=== PATIENT | male | born 1960 | race Hispanic/Latino ===

== ENCOUNTER 2017-09-23 12:33 | Emergency (ER) | payer MEDICARE ==
[2017-09-23 13:29] LABS: Basophils % (Auto) 0.7 % (0.0-1.8); Eosinophils # (Auto) 0.1 K/mm3 (0.0-0.4); Eosinophils % (Auto) 1.2 % (0.0-4.3); Hematocrit 46.8 % (35.5-45.6); Hemoglobin 16.4 gm/dl (11.8-15.2); Lymphocytes # (Auto) 1.3 K/mm3 (1.2-5.4); Lymphocytes % (Auto) 22.9 % (13.4-35.0); Mean Corpuscular HGB Conc 35 % (32-34); Mean Corpuscular Hemoglobin 31 pg (28-32); Mean Corpuscular Volume 88 fl (84-94); Monocytes # (Auto) 0.5 K/mm3 (0.0-0.8); Monocytes % (Auto) 8.9 % (0.0-7.3); Platelet Count 130 K/mm3 (140-440); Red Blood Count 5.29 M/mm3 (3.65-5.03); Red Cell Distribution Width 12.9 % (13.2-15.2)
[2017-09-23 13:42] LABS: BUN/Creatinine Ratio 15; Blood Urea Nitrogen 12 mg/dL (9-20); Calcium 9.5 mg/dL (8.4-10.2); Hemolysis Index 15; INR 1.27 (0.87-1.13)
[2017-09-23 13:43] LABS: Partial Thromboplastin Time 32.9 Sec. (24.2-36.6)
--- NOTE | 2017-09-23 13:47 | Emergency Department Report ---
ED Psych HPI - General Chief Complaint: Medical Clearance Stated Complaint: NICOLE BOLAND Time Seen by Provider: 09/23/17 13:06 Source: patient, police Mode of arrival: Ambulatory Limitations: No Limitations - History of Present Illness Initial Comments: 56-year-old male with a past medical history schizophrenia, bipolar disease, thyroid disease, elevated cholesterol, dementia, DVT, and PE presents to the hospital with complaints of suicidal ideation. Patient apparently expressed to his girlfriend doing a argument that he wanted to . Patient states he was just upset at the time and states he no longer wants to be involved with this woman. He states he has been suicidal in the past but denies feeling suicidal at this time. As per mechanical engineering officer [id number] patient complained of pain to his chest. Patient states he's had a little bit of right lateral chest pain 2 days ago that has since resolved. Patient has had similar pain in the past. A few months ago he was at [facility] and diagnosed with a PE. Patient has been on anticoagulation and has had a filter for several years secondary diagnoses of DVTs. Patient had the PE while or Pradaxa and with a filter but was told it was very small. Patient was admitted to the hospital for one day and transitioned to Lovenox and then changed Xarelto. He states that the Xarelto interfered with his bipolar medication that starts with a T and therefore it was changed to another bipolar medication (cant recall name). Patient states this medication is not helping with his psychiatric symptoms and so he is not taking it as prescribed. Patient states he missed one dose of his Xarelto 2 days ago but is otherwise compliant and took a dose last night at 8 PM. He currently denies chest pain, shortness of breath, or leg swelling. Patient denies hallucinations. - Related Data Home Medications Medication Instructions Recorded Confirmed Last Taken Citalopram [Celexa] 20 mg PO QDAY 07/26/13 02/21/15 02/21/15 05:00 Gabapentin [Neurontin] 300 mg PO Q8H 07/26/13 02/21/15 02/21/15 05:00 Levothyroxine [Synthroid] 150 mcg PO QAM 07/26/13 02/21/15 02/21/15 05:00 Loratadine [Claritin RAPDIS] 10 mg PO QDAY 0402/12/15 07/26/13 09:00 QUEtiapine [SEROquel] 50 mg PO QHS 07/26/13 02/21/15 02/20/15 21:00 Simvastatin [Zocor TAB] 40 mg PO ONCE 07/26/13 02/21/15 02/21/15 05:00 carBAMazepine [TEGretol] 200 mg PO TID 07/26/13 02/12/15 07/26/13 09:00 clonazePAM 0.5 mg PO TID 07/26/13 02/21/15 02/20/15 21:00 Dabigatran [Pradaxa] 150 mg PO BID 02/12/15 02/21/15 02/18/15 09:00 Omeprazole [PriLOSEC] 40 mg PO QDAY 02/12/15 02/21/15 02/21/15 05:00 Previous Rx's Medication Instructions Recorded Last Taken Type Enoxaparin [Lovenox] 110 mg SUB-Q Q12HR #10 syringe 07/30/13 12/13/14 Rx Acetaminophen/Codeine [Tylenol #3] 1 tab PO Q6H PRN #20 tab 12/22/14 02/20/15 19 :00 Rx Ibuprofen [Motrin 800 MG tab] 800 mg PO Q8HR PRN #30 tablet 12/22/14 Unknown Rx Allergies Allergy/AdvReac Type Severity Reaction Status Date / Time bupropion HCl Allergy Unknown Verified 09/23/17 12:55 [From Wellbutrin] levofloxacin [From Levaquin] Allergy Rash Verified 09/23/17 12:55 warfarin sodium Allergy Rash Verified 09/23/17 12:55 [From Coumadin] onion Allergy Hives Uncoded 07/27/13 16:12 ED Review of Systems ROS: Stated complaint: MH EVAL Other details as noted in HPI Comment: All other systems reviewed and negative ED Past Medical Hx - Past Medical History Hx Hypertension: No (+ hyperlipidemia) Hx Congestive Heart Failure: No Hx Diabetes: No Hx Deep Vein Thrombosis: Yes (right lower extremity 2012) Hx GERD: Yes Hx Renal Disease: No (Recurrent kidney stones) Hx Arthritis: Yes Hx Headaches / Migraines: Yes Hx Seizures: No Hx Kidney Stones: Yes Hx Asthma: No Hx Dementia: Yes (2011) Additional medical history: hiatal hernia. bipolar/schizophrenia. thyroid. high cholesterol - Surgical History Additional Surgical History: right rotater cuff repair. tonsillectomy. left wrist surgery. [place] filter - Social History Smoking Status: Never Smoker - Medications Home Medications: Home Medications Medication Instructions Recorded Confirmed Last Taken Type Citalopram [Celexa] 20 mg PO QDAY 07/26/13 02/21/15 02/21/15 05:00 History Gabapentin [Neurontin] 300 mg PO Q8H 07/26/13 02/21/15 02/21/15 05:00 History Levothyroxine [Synthroid] 150 mcg PO QAM 07/26/13 02/21/15 02/21/15 05:00 History Loratadine [Claritin RAPDIS] 10 mg PO QDAY 07/26/13 02/12/15 07/26/13 09:00 History QUEtiapine [SEROquel] 50 mg PO QHS 07/26/13 02/21/15 02/20/15 21:00 History Simvastatin [Zocor TAB] 40 mg PO ONCE 07/26/13 02/21/15 02/21/15 05:00 History carBAMazepine [TEGretol] 200 mg PO TID 07/26/13 02/12/15 07/26/13 09:00 History clonazePAM 0.5 mg PO TID 07/26/13 02/21/15 02/20/15 21:00 History Enoxaparin [Lovenox] 110 mg SUB-Q Q12HR #10 syringe 07/30/13 02/12/15 12/13/14 Rx Acetaminophen/Codeine [Tylenol #3] 1 tab PO Q6H PRN #20 tab 12/22/14 02/21/15 19:00 Rx Ibuprofen [Motrin 800 MG tab] 800 mg PO Q8HR PRN #30 tablet 12/22/14 02/12/15 Unknown Rx Dabigatran [Pradaxa] 150 mg PO BID 02/12/15 02/21/15 02/18/15 09:00 History Omeprazole [PriLOSEC] 40 mg PO QDAY 02/12/15 02/21/15 02/21/15 05:00 History ED Physical Exam - General Limitations: No Limitations - Other Other exam information: General: No limitations, patient is alert in no acute distress Head exam: Atraumatic, normocephalic Eyes exam: Normal appearance ENT: Moist mucous membrane, normal oropharynx Neck exam: Normal inspection, full range of motion, no meningismus nontender Respiratory exam: Clear to auscultation bilateral, no wheezes, rales, crackles Cardiovascular: Normal rate and rhythm, normal heart sounds Abdomen: Soft, nondistended, and nontender, with normal bowel sounds, no rebound, or guarding Extremity: Full range of motion normal inspection no deformity, no calf tenderness or edema Back: Normal Inspection, full range of motion, no tenderness Neurologic: Alert, oriented x3, cranial nerves intact, no motor or sensory deficit Psychiatric: normal affect, normal mood Skin: Warm, dry, intact ED Course Vital Signs 09/23/17 09/23/17 12:55 14:49 Temperature 98 F 98.4 F Pulse Rate 102 H 90 Respiratory 18 18 Rate Blood Pressure 128/82 Blood Pressure 138/83 [Right] O2 Sat by Pulse 97 98 Oximetry - Consultations Consultation #1: 09/23/17 16:38 Dr Ragland from [facility] was able to verify the pt has had close follow up and is in close and frequent contact with his psychiatrist. I verified the pt's number as [phone] which is the same they have on record. They will call him to schedule psych f/u. ED Medical Decision Making - Lab Data Result diagrams: 09/23/17 13:13 09/23/17 13:13 Lab Results 09/23/17 09/23/17 09/23/17 Range/Units 13:00 13:13 13:13 WBC 5.9 (4.5-11.0) K/mm3 RBC 5.29 H (3.65-5.03) M/mm3 Hgb 16.4 H (11.8-15.2) gm/dl Hct 46.8 H (35.5-45.6) % MCV 88 (84-94) fl MCH 31 (28-32) pg MCHC 35 H (32-34) % RDW 12.9 L (13.2-15.2) % Plt Count 130 L (140-440) K/mm3 Lymph % (Auto) 22.9 (13.4-35.0) % Alfalfa % (Auto) 8.9 H (0.0-7.3) % Eos % (Auto) 1.2 (0.0-4.3) % Baso % (Auto) 0.7 (0.0-1.8) % Lymph # 1.3 (1.2-5.4) K/mm3 Alfalfa # 0.5 (0.0-0.8) K/mm3 Eos # 0.1 (0.0-0.4) K/mm3 Baso # 0.0 (0.0-0.1) K/mm3 Seg Neutrophils % 66.3 (40.0-70.0) % Seg Neutrophils # 3.9 (1.8-7.7) K/mm3 PT 16.6 H (12.2-14.9) Sec. INR 1.27 H (0.87-1.13) APTT 32.9 (24.2-36.6) Sec. Sodium (137-145) mmol/L Potassium (3.6-5.0) mmol/L Chloride (98-107) mmol/L Carbon Dioxide (22-30) mmol/L Anion Gap mmol/L BUN (9-20) mg/dL Creatinine (0.8-1.5) mg/dL Estimated GFR ml/min BUN/Creatinine Ratio % Glucose (75-100) mg/dL Calcium (8.4-10.2) mg/dL Total Creatine Kinase (55-170) units/L CK-MB (CK-2) (0.0-4.0) ng/mL CK-MB (CK-2) Rel Index (0-4) Troponin T (0.00-0.029) ng/mL Salicylates (2.8-20.0) mg/dL Urine Opiates Screen Presumptive negative Urine Methadone Screen Presumptive negative Acetaminophen (10.0-30.0) ug/mL Ur Barbiturates Screen Presumptive negative Ur Phencyclidine Scrn Presumptive negative Ur Amphetamines Screen Presumptive negative U Benzodiazepines Scrn Presumptive positive Urine Cocaine Screen Presumptive negative U Marijuana (THC) Screen Presumptive positive Drugs of Abuse Note Disclamer Plasma/Serum Alcohol (0-0.07) % 09/23/17 09/23/17 09/23/17 Range/Units 13:13 13:13 13:13 WBC (4.5-11.0) K/mm3 RBC (3.65-5.03) M/mm3 Hgb (11.8-15.2) gm/dl Hct (35.5-45.6) % MCV (84-94) fl MCH (28-32) pg MCHC (32-34) % RDW (13.2-15.2) % Plt Count (140-440) K/mm3 Lymph % (Auto) (13.4-35.0) % Alfalfa % (Auto) (0.0-7.3) % Eos % (Auto) (0.0-4.3) % Baso % (Auto) (0.0-1.8) % Lymph # (1.2-5.4) K/mm3 Alfalfa # (0.0-0.8) K/mm3 Eos # (0.0-0.4) K/mm3 Baso # (0.0-0.1) K/mm3 Seg Neutrophils % (40.0-70.0) % Seg Neutrophils # (1.8-7.7) K/mm3 PT (12.2-14.9) Sec. INR (0.87-1.13) APTT (24.2-36.6) Sec. Sodium 140 (137-145) mmol/L Potassium 3.8 (3.6-5.0) mmol/L Chloride 101.8 (98-107) mmol/L Carbon Dioxide 21 L (22-30) mmol/L Anion Gap 21 mmol/L BUN 12 (9-20) mg/dL Creatinine 0.8 (0.8-1.5) mg/dL Estimated GFR > 60 ml/min BUN/Creatinine Ratio 15 % Glucose 101 H (75-100) mg/dL Calcium 9.5 (8.4-10.2) mg/dL Total Creatine Kinase (55-170) units/L CK-MB (CK-2) (0.0-4.0) ng/mL CK-MB (CK-2) Rel Index (0-4) Troponin T (0.00-0.029) ng/mL Salicylates < 0.3 L (2.8-20.0) mg/dL Urine Opiates Screen Urine Methadone Screen Acetaminophen < 5.0 L (10.0-30.0) ug/mL Ur Barbiturates Screen Ur Phencyclidine Scrn Ur Amphetamines Screen U Benzodiazepines Scrn Urine Cocaine Screen U Marijuana (THC) Screen Drugs of Abuse Note Plasma/Serum Alcohol (0-0.07) % 09/23/17 09/23/17 Range/Units 13:13 13:13 WBC (4.5-11.0) K/mm3 RBC (3.65-5.03) M/mm3 Hgb (11.8-15.2) gm/dl Hct (35.5-45.6) % MCV (84-94) fl MCH (28-32) pg MCHC (32-34) % RDW (13.2-15.2) % Plt Count (140-440) K/mm3 Lymph % (Auto) (13.4-35.0) % Alfalfa % (Auto) (0.0-7.3) % Eos % (Auto) (0.0-4.3) % Baso % (Auto) (0.0-1.8) % Lymph # (1.2-5.4) K/mm3 Alfalfa # (0.0-0.8) K/mm3 Eos # (0.0-0.4) K/mm3 Baso # (0.0-0.1) K/mm3 Seg Neutrophils % (40.0-70.0) % Seg Neutrophils # (1.8-7.7) K/mm3 PT (12.2-14.9) Sec. INR (0.87-1.13) APTT (24.2-36.6) Sec. Sodium (137-145) mmol/L Potassium (3.6-5.0) mmol/L Chloride (98-107) mmol/L Carbon Dioxide (22-30) mmol/L Anion Gap mmol/L BUN (9-20) mg/dL Creatinine (0.8-1.5) mg/dL Estimated GFR ml/min BUN/Creatinine Ratio % Glucose (75-100) mg/dL Calcium (8.4-10.2) mg/dL Total Creatine Kinase 241 H (55-170) units/L CK-MB (CK-2) 1.5 (0.0-4.0) ng/mL CK-MB (CK-2) Rel Index 0.6 (0-4) Troponin T < 0.010 (0.00-0.029) ng/mL Salicylates (2.8-20.0) mg/dL Urine Opiates Screen Urine Methadone Screen Acetaminophen (10.0-30.0) ug/mL Ur Barbiturates Screen Ur Phencyclidine Scrn Ur Amphetamines Screen U Benzodiazepines Scrn Urine Cocaine Screen U Marijuana (THC) Screen Drugs of Abuse Note Plasma/Serum Alcohol < 0.01 (0-0.07) % - EKG Data -: EKG Interpreted by Me (probable old anerolateral infarct) EKG shows normal: sinus rhythm, axis (qrs 226), QRS complexes (qrsd 200), ST-T waves (no stemi/ tinv) Rate: normal (71) - EKG Data When compared to previous EKG there are: previous EKG unavailable - Medical Decision Making Patient does not appear to have any acute physiologic complaints or abnormality. His visits to the ER seems to be purely due to psychiatric reasons. Patient's story has been consistently the same that he is not suicidal. The mental health bsa/aml compliance officer attempted to contact his girlfriend but there was no answer. After discussion with Dr. Obie serrano it appears that the patient's story is consistent that he is in close contact with the psychiatrist with plan to follow-up. They will call him to schedule an appointment in the near future. Patient is stable for discharge - Differential Diagnosis depression, bipolar, schizophrenia Critical Care Time: No Critical care attestation.: If time is entered above; I have spent that time in minutes in the direct care of this critically ill patient, excluding procedure time. ED Disposition Clinical Impression: Bipolar disorder, Hx of deep venous thrombosis, Hx of pulmonary embolus, Anticoagulant long-term use Disposition: DC-01 TO HOME OR SELFCARE Is pt being admited?: No Condition: Stable Instructions: Bipolar Disorder (ED), Suicide Prevention for Adults (ED) Additional Instructions: You should receive a call from [facility] to schedule a psychiatric appointment. If you do not hear a call back by tomorrow please call your physicians to schedule follow-up. Please return if symptoms worsen as indicated by the discharge instructions. Referrals: PRIMARY CARE,MD [Primary Care Provider] - 3-5 Days your, psychiatrist [Other] - [facility] Time of Disposition: 16:53
[2017-09-23 13:49] LABS: Creatine Kinase MB 1.5 ng/mL (0.0-4.0)
[2017-09-23 14:20] LABS: Amphetamine Screen,Urine PRESUMPTIVE NEGATIVE; Cocaine Screen,Urine PRESUMPTIVE NEGATIVE; Methadone Screen,Urine PRESUMPTIVE NEGATIVE; Opiate Screen,Urine PRESUMPTIVE NEGATIVE
[2017-09-23 14:35] LABS: Benzodiazepines Screen,Urine PRESUMPTIVE POSITIVE; Cannabinoid Screen,Urine PRESUMPTIVE POSITIVE
[2017-09-23 17:43] VITALS: BP 111/72
[2017-09-23] MEDS ORDERED: XARELTO PO SCH (20:00)
== END 2017-09-23 17:41 | disposition home or self-care (01) ==
LOC: ED 12:33 → EEVIPCON 12:33 → ED 17:41
DX: F31.9 Bipolar disorder, unspecified (principal); G43.909 Migraine, unspecified, not intractable, without status migrainosus; F20.9 Schizophrenia, unspecified; E78.00 Pure hypercholesterolemia, unspecified; K21.9 Gastro-esophageal reflux disease without esophagitis; M19.90 Unspecified osteoarthritis, unspecified site; Z88.1 Allergy status to other antibiotic agents; Z86.718 Personal history of other venous thrombosis and embolism; Z86.711 Personal history of pulmonary embolism; Z79.01 Long term (current) use of anticoagulants; Z88.8 Allergy status to other drugs, medicaments and biological substances; Z91.018 Allergy to other foods
CPT/HCPCS: 36415; 80048; 80307; 82550; 82553; 84484; 85025; 85610; 85730; 93005; 93010; 99284; G0480; 80320

== ENCOUNTER 2018-10-07 08:51 | Emergency (ER) | payer MEDICARE ==
[2018-10-07] MEDS ORDERED: ATIVAN ONE ×3 (08:59→19:41)
[2018-10-07] MEDS ORDERED: KETALAR ONE (09:00)
[2018-10-07] MEDS ORDERED: NACL 0.9% 500 ML 500 ML IV SCH (09:00)
[2018-10-07] MEDS ORDERED: NACL 0.9% 500 ML 500 ML IV ONE (09:00)
[2018-10-07] MEDS ORDERED: SUBLIMAZE ONE (09:08)
[2018-10-07] MEDS ORDERED: NORMODYNE IV ONE ×2 (09:13→12:50)
--- NOTE | 2018-10-07 09:17 | Consultation ---
History of Present Illness History of present illness: [facility] Impression: Patient presenting with agitation/combativeness/encephalopathy. CT shows left occipitoparietal hemorrhage with surrounding vasogenic edema. Not a tpa candidate due to: out of window, taking Xarelto, bleed on CT Not an GÓMEZ candidate due to: presentation not suggestive of LVO, bleed on CT Differential Diagnosis: 1. IPH - underlying mass, trauma, AVM, amyloid, HTN, infarct Comments: Door time: 08 [facility] contacted: 0900 [facility] at bedside: 903 NIHSS assessment time: 907 Recommendations: MRI brain wow once safe EEG once safe Hold Xarelto Reverse coagulopathy Monitor coags HOB 30 degrees SBP < 140 Euvolemia, normothermia, avoid hypoglycemia inpatient neurology consultation neurosurgery consultation Discussed with ED MD --------- CC: stroke alert History of Present Illness Patient is a 57 year old man with a history of schizophrenia, bipolar disorder, factor V Leiden, DVT/PE on Xarelto who presented with agitation/encephalopathy. Last known well last night at 2300 prior to bed. He reportedly woke agitated/combative and yelling. No focal deficits noted. ED MD called stroke alert to expedite CT. Diagnostic: CT head wo - left occipitoparietal IPH with surrounding vasogenic edema, mass effect on left occipital horn Exam: NIHSS score: 13 He is hyperactive/agitated and yelling. Physical restraints in place. He does not participate in exam. Gaze centered with full horizontal movement on observation. Face symmetric. He has very strong resistance against the restraints in all limbs. He is just yelling without any meaningful speech production. No sensory loss to nox stim in extremities. Medical Decision Making: - Extensive number of diagnosis or management options are considered above. - Extensive amount of complex data reviewed. - High risk of complication and/or morbidity or mortality are associated with differential diagnostic considerations above. - There may be Uncertain outcome and increased probability of prolonged functional impairment or high probability of severe prolonged functional impairment associated with some of these differential diagnosis. Medical Data Reviewed: 1.Data reviewed include clinical labs, radiology, Medical Tests; 2.Tests results discussed w/performing or interpreting physician; 3.Obtaining/reviewing old medical records; 4.Obtaining case history from another source; 5.Independent review of image, tracing or specimen. Patient was informed the Neurology Consult would happen via TeleHealth consult by way of interactive audio and video telecommunications and consented to receiving care in this manner. Medications and Allergies Allergies Allergy/AdvReac Type Severity Reaction Status Date / Time bupropion HCl Allergy Unknown Verified 09/23/17 12:55 [From Wellbutrin] levofloxacin [From Levaquin] Allergy Rash Verified 09/23/17 12:55 warfarin sodium Allergy Rash Verified 09/23/17 12:55 [From Coumadin] onion Allergy Hives Uncoded 07/27/13 16:12 Home Medications Medication Instructions Recorded Confirmed Last Taken Type Citalopram [Celexa] 20 mg PO QDAY 07/26/13 02/21/15 02/21/15 05:00 History Gabapentin [Neurontin] 300 mg PO Q8H 07/26/13 02/21/15 02/21/15 05:00 History Levothyroxine [Synthroid] 150 mcg PO QAM 07/26/13 02/21/15 02/21/15 05:00 History Loratadine [Claritin RAPDIS] 10 mg PO QDAY 07/26/13 02/12/15 07/26/13 09:00 History QUEtiapine [SEROquel] 50 mg PO QHS 07/26/13 02/21/15 02/20/15 21:00 History Simvastatin (Nf) [Zocor TAB] 40 mg PO ONCE 07/26/13 02/21/15 02/21/15 05:00 History carBAMazepine [TEGretol] 200 mg PO TID 07/26/13 02/12/15 07/26/13 09:00 History clonazePAM 0.5 mg PO TID 07/26/13 02/21/15 02/20/15 21:00 History Enoxaparin [Lovenox] 110 mg SUB-Q Q12HR #10 syringe 07/30/13 02/12/15 12/13/14 Rx Acetaminophen/Codeine [Tylenol #3] 1 tab PO Q6H PRN #20 tab 12/22/14 02/21/15 02/20/15 19:00 Rx Ibuprofen [Motrin 800 MG tab] 800 mg PO Q8HR PRN #30 tablet 12/22/14 02/12/15 Unknown Rx Dabigatran [Pradaxa] 150 mg PO BID 02/12/15 02/21/15 02/18/15 09:00 History Omeprazole [PriLOSEC] 40 mg PO QDAY 02/12/15 02/21/15 02/21/15 05:00 History - Level of Consciousness 1a. Level of Consciousness: alert/keenly responsive - LOC Questions 1b. LOC Questions: answers no questions correctly - LOC Command 1c. LOC Commands: performs no tasks correctly - Best Gaze 2. Best Gaze: normal - Visual 3. Visual: no visual loss - Facial Palsy 4. Facial Palsy: normal symmetrical movement - Motor Arm 5a. Motor Arm Left: drift 5b. Motor Arm Right: drift - Motor Leg 6a. Motor Leg Left: drift 6b. Motor Leg Right: drift - Limb Ataxia 7. Limb Ataxia: absent - Sensory 8. Sensory: normal - Best Language 9. Best Language: mute/global aphasia - Dysarthria 10. Dysarthria: mute/anarrthric - Extinction and Inattention 11. Extinction/Inattention: no abnormality - Scoring Total Score: 13 Stroke Severity: Moderate Stroke Results - Laboratory Findings CBC and BMP: 10/07/18 09:27 10/07/18 09:27
[2018-10-07] MEDS ORDERED: KETALAR IV ONE (09:34)
[2018-10-07] MEDS ORDERED: ATIVAN IM ONE (09:34)
[2018-10-07] MEDS ORDERED: ATIVAN IV ONE (09:34)
[2018-10-07] MEDS ORDERED: SUBLIMAZE INTRANASAL ONE (09:35)
[2018-10-07] MEDS ORDERED: DIPRIVAN 10 MG/ML IV ONE ×2 (09:40)
[2018-10-07 10:00] LABS: INR 1.65 (0.87-1.13); Partial Thromboplastin Time 28.6 Sec. (24.2-36.6)
[2018-10-07] MEDS ORDERED: DIPRIVAN 10 MG/ML 1,000 MG/100 ML BOTTLE IV SCH (10:00)
[2018-10-07 10:01] LABS: Basophils # (Auto) 0.1 K/mm3 (0.0-0.1); Basophils % (Auto) 1.1 % (0.0-1.8); Eosinophils # (Auto) 0.1 K/mm3 (0.0-0.4); Eosinophils % (Auto) 0.5 % (0.0-4.3); Hemoglobin 15.7 gm/dl (11.8-15.2); Lymphocytes # (Auto) 3.8 K/mm3 (1.2-5.4); Lymphocytes % (Auto) 32.3 % (13.4-35.0); Mean Corpuscular HGB Conc 34 % (32-34); Mean Corpuscular Volume 92 fl (84-94); Monocytes # (Auto) 0.6 K/mm3 (0.0-0.8); Platelet Count 213 K/mm3 (140-440); Red Blood Count 4.99 M/mm3 (3.65-5.03); Red Cell Distribution Width 13.4 % (13.2-15.2)
[2018-10-07 10:05] LABS: BUN/Creatinine Ratio 4; Blood Urea Nitrogen 5 mg/dL (9-20); Calcium 8.9 mg/dL (8.4-10.2); Hemolysis Index 16
[2018-10-07] MEDS ORDERED: DIPRIVAN 10 MG/ML 1,000 MG/100 ML BOTTLE IV ONE (10:14)
--- NOTE | 2018-10-07 10:17 | Cat Scan Report ---
CT HEAD WITHOUT CONTRAST: HISTORY: Neuro deficits less than 6 hours, stroke. TECHNIQUE: Sequential 2.5mm CT images. COMPARISON: none. FINDINGS: Cerebral Parenchyma: There is a large area of edema in the posterior left temporal lobe. Hemorrhage is seen within this area measuring up to 4.4 x 2.7 cm in axial plane. There is no evidence for significant mass effect or midline shift. The remaining brain parenchyma is within normal limits. Cerebellum: Within normal limits. Brainstem: Within normal limits. Ventricles: Normal. Sella: Normal. Extra-axial spaces: Normal. Basal Cisterns: Normal. Midline Shift: None. Calvarium: Normal. Sinuses: Normal. Mastoid Air Cells: Normal. Visualized Orbits: Normal. IMPRESSION: Left posterior temporal hemorrhage with surrounding edema as discussed above. Please note an underlying hemorrhagic lesion cannot be entirely excluded. Consider followup MRI with contrast if needed. These findings were discussed with Dr. Smiley in the emergency department at 1008 hours
[2018-10-07] MEDS ORDERED: NACL 0.9% 500 ML 500 ML ONE (10:26)
[2018-10-07 10:29] LABS: Albumin 4.6 g/dL (3.9-5); Bilirubin,Direct 0.2 mg/dL (0-0.2); Creatine Kinase MB 1.2 ng/mL (0.0-4.0)
[2018-10-07] MEDS ORDERED: KCL 10MEQ/100ML 10 MEQ/100 ML BAG IV ONE ×2 (10:36→10:40)
--- NOTE | 2018-10-07 10:42 | Emergency Department Report ---
ED General Adult HPI - General Chief complaint: Altered Mental Status Stated complaint: AMS/SEIZURE Time Seen by Provider: 10/07/18 09:29 Source: family, EMS Mode of arrival: Stretcher Limitations: Altered Mental Status - History of Present Illness Initial comments: This is a 57-year-old male with a maren excited delirium on arrival at this facility. Remarkably was transported by EMS. His who states she works at [employer]. She states that the patient complained of some sort of dyslexia last night at about 11:00; he stated that he was able to read all one word in a sentence. He went to sleep and this morning he was totally confused disoriented and incoherent. 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 He has factor V Leiden deficiency she states. Immediate chemical sedation and restraint was required to facilitate the patient's stat workup. He was called a code stroke has a potential TPA candidate but in order to expedite his neurological workup with a high index of suspicion for ICH. -: Last night - Related Data Home Medications Medication Instructions Recorded Confirmed Last Taken Citalopram [Celexa] 20 mg PO QDAY 07/26/13 02/21/15 02/21/15 05:00 Gabapentin [Neurontin] 300 mg PO Q8H 07/26/13 02/21/15 02/21/15 05:00 Levothyroxine [Synthroid] 150 mcg PO QAM 07/26/13 02/21/15 02/21/15 05:00 Loratadine [Claritin RAPDIS] 10 mg PO QDAY 07/26/13 02/12/15 07/26/13 09:00 QUEtiapine [SEROquel] 50 mg PO QHS 07/26/13 02/21/15 02/20/15 21:00 Simvastatin (Nf) [Zocor TAB] 40 mg PO ONCE 07/26/13 02/21/15 02/21/15 05:00 carBAMazepine [TEGretol] 200 mg PO TID 07/26/13 02/12/15 07/26/13 09:00 clonazePAM 0.5 mg PO TID 07/26/13 02/21/15 02/20/15 21:00 Dabigatran [Pradaxa] 150 mg PO BID 02/12/15 02/21/1515 09:00 Omeprazole [PriLOSEC] 40 mg PO QDAY 02/12/15 02/21/15 02/21/15 05:00 Previous Rx's Medication Instructions Recorded Last Taken Type Enoxaparin [Lovenox] 110 mg SUB-Q Q12HR #10 syringe 07/30/13 12/13/14 Rx Acetaminophen/Codeine [Tylenol #3] 1 tab PO Q6H PRN #20 tab 12/22/14 02/20/15 19:00 Rx Ibuprofen [Motrin 800 MG tab] 800 mg PO Q8HR PRN #30 tablet 12/22/14 Unknown Rx Allergies Allergy/AdvReac Type Severity Reaction Status Date / Time bupropion HCl Allergy Unknown Verified 09/23/17 12:55 [From Wellbutrin] levofloxacin [From Levaquin] Allergy Rash Verified 09/23/17 12:55 warfarin sodium Allergy Rash Verified 09/23/17 12:55 [From Coumadin] onion Allergy Hives Uncoded 07/27/13 16:12 ED Review of Systems ROS: Stated complaint: AMS/SEIZURE Other details as noted in HPI Comment: Unobtainable due to pts medical conditions ED Past Medical Hx - Past Medical History Hx Hypertension: No (+ hyperlipidemia) Hx Congestive Heart Failure: No Hx Diabetes: No Hx Deep Vein Thrombosis: Yes (right lower extremity 2012) Hx GERD: Yes Hx Renal Disease: No (Recurrent kidney stones) Hx Arthritis: Yes Hx Headaches / Migraines: Yes Hx Seizures: No Hx Kidney Stones: Yes Hx Asthma: No Hx Dementia: Yes (2011) Additional medical history: hiatal hernia. bipolar/schizophrenia. thyroid. high cholesterol - Surgical History Additional Surgical History: right rotater cuff repair. tonsillectomy. left wrist surgery. [place] filter - Social History Smoking Status: Never Smoker - Medications Home Medications: Home Medications Medication Instructions Recorded Confirmed Last Taken Type Citalopram [Celexa] 20 mg PO QDAY 07/26/13 02/21/15 02/21/15 05:00 History Gabapentin [Neurontin] 300 mg PO Q8H 07/26/13 02/21/15 02/21/15 05:00 History Levothyroxine [Synthroid] 150 mcg PO QAM 07/26/13 02/21/15 02/21/15 05:00 History Loratadine [Claritin RAPDIS] 10 mg PO QDAY 07/26/13 02/12/15 07/26/13 09:00 History QUEtiapine [SEROquel] 50 mg PO QHS 07/26/13 02/21/15 02/20/15 21:00 History Simvastatin (Nf) [Zocor TAB] 40 mg PO ONCE 07/26/13 02/21/15 02/21/15 05:00 History carBAMazepine [TEGretol] 200 mg PO TID 07/26/13 02/12/15 07/26/13 09:00 History clonazePAM 0.5 mg PO TID 07/26/13 02/21/15 02/20/15 21:00 History Enoxaparin [Lovenox] 110 mg SUB-Q Q12HR #10 syringe 07/30/13 02/12/15 12/13/14 Rx Acetaminophen/Codeine [Tylenol #3] 1 tab PO Q6H PRN #20 tab 12/22/14 02/21/15 02/20/15 19:00 Rx Ibuprofen [Motrin 800 MG tab] 800 mg PO Q8HR PRN #30 tablet 12/22/14 02/12/15 Unknown Rx Dabigatran [Pradaxa] 150 mg PO BID 02/12/15 02/21/15 02/18/15 09:00 History Omeprazole [PriLOSEC] 40 mg PO QDAY 02/12/15 02/21/15 02/21/15 05:00 History ED Physical Exam - General Limitations: Altered Mental Status General appearance: other (extremely agitated) - Head Head exam: Present: atraumatic - Eye Eye exam: Present: PERRL, EOMI. Absent: scleral icterus - ENT ENT exam: Present: other (extremely poor dentition) - Neck Neck exam: Present: normal inspection. Absent: meningismus - Respiratory Respiratory exam: Present: normal lung sounds bilaterally. Absent: respiratory distress - Cardiovascular Cardiovascular Exam: Present: regular rate, normal rhythm. Absent: systolic murmur, diastolic murmur, rubs, gallop - GI/Abdominal GI/Abdominal exam: Present: soft, normal bowel sounds. Absent: distended, tenderness, guarding, rebound, rigid - Extremities Exam Extremities exam: Present: normal inspection - Neurological Exam Neurological exam: Present: altered, CN II-XII intact (on very limited testing), motor sensory deficit (moving all extremities with extreme strength), other (GCS is 9) - Psychiatric Psychiatric exam: Present: agitated - Skin Skin exam: Present: warm, dry, intact, normal color. Absent: rash ED Course - Reevaluation(s) Reevaluation #1: Mechanical and chemical restraint required. Patient's initial blood pressure was rather high as well as his heart rate being in the 140s. He required blood pressure management. He was given Ativan both IM and IV. When his blood pressure was at a reasonable level we preceded with ketamine. I accompanied the patient to CT where he received propofol. He never desaturated. A CT of his head showed a substantially large subacute left occipital parietal hemorrhage with substantial edema. Neurosurgery at [place] was notified. They recommended that we go ahead with mannitol. I had already ordered Kcentra and directed the pharmacist to prepare this on a stat basis. 10/07/18 10:43 10/07/18 10:49 Obviously the patient was never a candidate for thrombolytic therapy. He has been accepted by Dr. Fernandez, Neuro- Intervention list had [facility]. [place] doctor Brandt has been informed and concur with the transfer. - Intubation Time Out Performed: No Sedative: other (propofol) Paralytic: Succinylcholine Laryngoscope: Gene Size: 4 ET Tube Size: 7.5 Tube Secured Depth (cm): 22 Tube Secured Location: teeth Tube Placement Confirmation: visualized tube passing t Patient Tolerated Procedure: well Intubation Complications: none ED Medical Decision Making - Lab Data Result diagrams: 10/07/18 09:27 10/07/18 09:27 Laboratory Results - last 24 hr 10/07/18 10/07/18 10/07/18 09:27 09:27 09:27 WBC 11.8 H RBC 4.99 Hgb 15.7 H Hct 46.0 H MCV 92 MCH 32 MCHC 34 RDW 13.4 Plt Count 213 Lymph % (Auto) 32.3 [place] % (Auto) 5.0 Eos % (Auto) 0.5 Baso % (Auto) 1.1 Lymph # 3.8 [place] # 0.6 Eos # 0.1 Baso # 0.1 Seg Neutrophils % 61.1 Seg Neutrophils # 7.2 PT 20.6 H INR 1.65 H APTT 28.6 Thrombin Time Sodium 142 Potassium 2.9 L* Chloride 96.0 L Carbon Dioxide 13 L Anion Gap 36 BUN 5 L Creatinine 1.2 Estimated GFR > 60 BUN/Creatinine Ratio 4 Glucose 199 H Calcium 8.9 Total Bilirubin Direct Bilirubin Indirect Bilirubin AST ALT Alkaline Phosphatase Ammonia Total Creatine Kinase CK-MB (CK-2) CK-MB (CK-2) Rel Index Troponin T < 0.010 NT-Pro-B Natriuret Pep Total Protein Albumin Albumin/Globulin Ratio Salicylates Acetaminophen Plasma/Serum Alcohol 10/07/18 10/07/18 10/07/18 09:27 09:27 09:42 WBC RBC Hgb Hct MCV MCH MCHC RDW Plt Count Lymph % (Auto) [place] % (Auto) Eos % (Auto) Baso % (Auto) Lymph # [place] # Eos # Baso # Seg Neutrophils % Seg Neutrophils # PT INR APTT Thrombin Time 16.2 Sodium Potassium Chloride Carbon Dioxide Anion Gap BUN Creatinine Estimated GFR BUN/Creatinine Ratio Glucose Calcium Total Bilirubin 0.80 Direct Bilirubin 0.2 Indirect Bilirubin 0.6 AST 28 ALT 23 Alkaline Phosphatase 114 Ammonia 109.0 H Total Creatine Kinase 154 CK-MB (CK-2) 1.2 CK-MB (CK-2) Rel Index 0.7 Troponin T NT-Pro-B Natriuret Pep 43.35 Total Protein 7.5 Albumin 4.6 Albumin/Globulin Ratio 1.6 Salicylates Acetaminophen Plasma/Serum Alcohol 10/07/18 10/07/18 10/07/18 09:42 09:42 09:42 WBC RBC Hgb Hct MCV MCH MCHC RDW Plt Count Lymph % (Auto) [place] % (Auto) Eos % (Auto) Baso % (Auto) Lymph # [place] # Eos # Baso # Seg Neutrophils % Seg Neutrophils # PT INR APTT Thrombin Time Sodium Potassium Chloride Carbon Dioxide Anion Gap BUN Creatinine Estimated GFR BUN/Creatinine Ratio Glucose Calcium Total Bilirubin Direct Bilirubin Indirect Bilirubin AST ALT Alkaline Phosphatase Ammonia Total Creatine Kinase CK-MB (CK-2) CK-MB (CK-2) Rel Index Troponin T NT-Pro-B Natriuret Pep Total Protein Albumin Albumin/Globulin Ratio Salicylates < 0.3 L Acetaminophen < 5.0 L Plasma/Serum Alcohol < 0.01 - EKG Data EKG shows normal: sinus rhythm Rate: normal - EKG Data Interpretation: no acute changes - Radiology Data Radiology results: image reviewed (occipital parietal hemorrhage with edema) Critical Care Time: Yes Critical care time in (mins) excluding proc time.: 90 Critical care attestation.: If time is entered above; I have spent that time in minutes in the direct care of this critically ill patient, excluding procedure time. ED Disposition Clinical Impression: Intracranial hemorrhage, Acute encephalopathy, On anticoagulant therapy, Hypokalemia, Factor V Leiden Disposition: DC/TX-70 ANOTHER TYPE HLTHCARE Is pt being admited?: No Does the pt Need Aspirin: No Condition: Stable Time of Disposition: 10:52
[2018-10-07 10:59] LABS: Bacteria,Urine 1+ /HPF (Negative); Bilirubin,Urine NEG (Negative); Blood,Urine SM (Negative); Color,Urine Yellow (Yellow); Mucus,Urine FEW /HPF; Urobilinogen,Urine < 2.0 mg/dL (<2.0)
[2018-10-07] MEDS ORDERED: KCENTRA IV ONE (11:00)
[2018-10-07] MEDS ORDERED: VIAFLEX EMPTY CONTAINER IV ONE (11:00)
[2018-10-07] MEDS ORDERED: OSMITROL 20% IV ONE (11:00)
[2018-10-07] MEDS ORDERED: NACL 0.9% 1000 ML 1,000 ML ONE (11:06)
--- NOTE | 2018-10-07 11:11 | XRay Report ---
AP CHEST: HISTORY: Hypertension No recent comparison. An endotracheal tube has been inserted which terminates 3.2 cm superior to the tad. There is adequate pulmonary inflation. No evidence for infiltrate, pleural effusion or pneumothorax. Heart size is within normal limits. IMPRESSION: Adequate placement of the endotracheal tube. Unremarkable AP chest.
[2018-10-07 11:48] VITALS: BP 135/81
[2018-10-07] MEDS ORDERED: QUELICIN ONE (14:41)
[2018-10-14] MEDS ORDERED: DIPRIVAN 10 MG/ML IV ONE (09:45)
== END 2018-10-07 11:58 | disposition other institution (70) ==
LOC: ED 08:51
DX: I62.9 Nontraumatic intracranial hemorrhage, unspecified (principal); G93.40 Encephalopathy, unspecified; E87.6 Hypokalemia; D68.2 Hereditary deficiency of other clotting factors; E78.5 Hyperlipidemia, unspecified; M19.90 Unspecified osteoarthritis, unspecified site; G43.909 Migraine, unspecified, not intractable, without status migrainosus; Z86.718 Personal history of other venous thrombosis and embolism; Z79.01 Long term (current) use of anticoagulants; Z87.442 Personal history of urinary calculi; Z88.6 Allergy status to analgesic agent; Z88.1 Allergy status to other antibiotic agents; Z79.2 Long term (current) use of antibiotics; Z79.899 Other long term (current) drug therapy
CPT/HCPCS: 31500; 36415; 70450; 71045; 80048; 80076; 81001; 82140; 82550; 82553; 83880; 84484; 85025; 85610; 85670; 85730; 93005; 93010; 96365; 96368; 96372; 96375; 99291; 99292; G0480; J0330; J2060; J2150; J2704; J3010; J3480; J7030; J7040; J7195; 80320; 94002

== ENCOUNTER 2020-08-12 13:09 | Emergency (ER) | payer MEDICARE ==
[2020-08-12] MEDS ORDERED: KETAMINE 500 MG/5 ML VIAL MDV ONE (13:18)
--- NOTE | 2020-08-12 13:27 | Emergency Department Report ---
ED General Adult HPI - General Chief complaint: Neuro Symptoms/Deficit Stated complaint: AMS/COMBATIVE Time Seen by Provider: 08/12/20 13:12 Source: patient Mode of arrival: Stretcher Limitations: No Limitations - History of Present Illness Initial comments: Presents with medics and police for evaluation of abrupt onset of altered mental status described as agitation/belligerent behavior beginning approximately 40 minutes ago. Per medics, family states patient had similar episode immediately prior to stroke previously. Upon arrival, patient received Haldol 5 mg, Benadryl 50 mg, and Versed 5 mg. Patient arrives nonetheless combative. Patient required my immediate attention. Further information later obtained from who states patient was seemingly normal then immediately physically difficult to control at home, suddenly with altered mental status. Patient's notes patient had seizure 3 months ago but did not follow-up with neurology, is not currently taking any antiepileptic medication. Patient is taking Eliquis for factor V Leiden deficiency. - Related Data Home Medications Medication Instructions Recorded Confirmed Last Taken Levothyroxine [Synthroid] 150 mcg PO QAM 07/26/13 12/03/19 02/21/15 05:00 Eliquis 5 mg PO DAILY 12/03/19 12/03/19 Unknown Lasix TAB 40 mg PO DAILY 12/03/19 12/03/19 Unknown Lisinopril 10 mg PO DAILY 12/03/19 12/03/19 Unknown Meclizine 12.5 mg PO DAILY 12/03/19 12/03/19 Unknown Metoprolol 25 mg PO BID 12/03/19 12/03/19 Unknown Omeprazole 40 mg PO DAILY 12/03/19 12/03/19 Unknown Potassium 10 meq PO DAILY 12/03/19 12/03/19 Unknown Rosuvastatin (Nf) 20 mg PO DAILY 12/03/19 12/03/19 Unknown amLODIPine 5 mg PO DAILY 12/03/19 12/03/19 Unknown lamoTRIgine 25 mg PO BID 12/03/19 12/03/19 Unknown risperiDONE 0.25 mg PO HS 12/03/19 12/03/19 Unknown Allergies Allergy/AdvReac Type Severity Reaction Status Date / Time bupropion HCl Allergy Unknown Verified 09/23/17 12:55 [From Wellbutrin] levofloxacin [From Levaquin] Allergy Rash Verified 09/23/17 12:55 warfarin sodium Allergy Rash Verified 09/23/17 12:55 [From Coumadin] onion Allergy Hives Uncoded 07/27/13 16:12 ED Review of Systems ROS: Stated complaint: AMS/COMBATIVE Other details as noted in HPI Comment: Unobtainable due to pts medical conditions ED Past Medical Hx - Past Medical History Previous Medical History?: Yes Hx Hypertension: No (+ hyperlipidemia) Hx Congestive Heart Failure: No Hx Diabetes: No Hx Deep Vein Thrombosis: Yes (right lower extremity 2012) Hx GERD: Yes Hx Renal Disease: No (Recurrent kidney stones) Hx Arthritis: Yes Hx Headaches / Migraines: Yes Hx Seizures: No Hx Kidney Stones: Yes Hx Asthma: No Hx Dementia: Yes (2011) Additional medical history: hiatal hernia. bipolar/schizophrenia. thyroid. high cholesterol. Factor V Leiden deficiency - Surgical History Past Surgical History?: Yes Additional Surgical History: right rotater cuff repair. tonsillectomy. left wrist surgery. [place] filter - Social History Smoking Status: Unknown if ever smoked Substance Use Type: None - Medications Home Medications: Home Medications Medication Instructions Recorded Confirmed Last Taken Type Levothyroxine [Synthroid] 150 mcg PO QAM 07/26/13 12/03/19 02/21/15 05:00 History Eliquis 5 mg PO DAILY 12/03/19 12/03/19 Unknown History Lasix TAB 40 mg PO DAILY 12/03/19 12/03/19 Unknown History Lisinopril 10 mg PO DAILY 12/03/19 12/03/19 Unknown History Meclizine 12.5 mg PO DAILY 12/03/19 12/03/19 Unknown History Metoprolol 25 mg PO BID 12/03/19 12/03/19 Unknown History Omeprazole 40 mg PO DAILY 12/03/19 12/03/19 Unknown History Potassium 10 meq PO DAILY 12/03/19 12/03/19 Unknown History Rosuvastatin (Nf) 20 mg PO DAILY 12/03/19 12/03/19 Unknown History amLODIPine 5 mg PO DAILY 12/03/19 12/03/19 Unknown History lamoTRIgine 25 mg PO BID 12/03/19 12/03/19 Unknown History risperiDONE 0.25 mg PO HS 12/03/19 12/03/19 Unknown History ED Physical Exam - General Limitations: No Limitations General appearance: alert, in distress, postictal - Head Head exam: Present: atraumatic, normocephalic - Eye Eye exam: Present: normal appearance - ENT ENT exam: Present: mucous membranes moist, other (Superficial tongue laceration) - Neck Neck exam: Present: normal inspection - Respiratory Respiratory exam: Present: normal lung sounds bilaterally. Absent: respiratory distress - Cardiovascular Cardiovascular Exam: Present: regular rate, normal rhythm. Absent: systolic murmur, diastolic murmur, rubs, gallop - GI/Abdominal GI/Abdominal exam: Present: soft, normal bowel sounds - Rectal Rectal exam: Present: deferred - Extremities Exam Extremities exam: Present: normal inspection - Back Exam Back exam: Present: normal inspection - Neurological Exam Neurological exam: Present: alert, altered - Psychiatric Psychiatric exam: Present: agitated - Skin Skin exam: Present: warm, dry, intact, normal color. Absent: rash ED Course Vital Signs 08/12/20 08/12/20 08/12/20 13:10 14:00 14:16 Temperature 98.0 F Pulse Rate 84 79 Respiratory 20 17 Rate Blood Pressure 158/98 141/84 Blood Pressure [Right] O2 Sat by Pulse 97 92 93 Oximetry 08/12/20 08/12/20 08/12/20 14:46 15:00 15:16 Temperature Pulse Rate 81 91 H 86 Respiratory 18 18 18 Rate Blood Pressure 130/92 130/92 163/102 Blood Pressure [Right] O2 Sat by Pulse 94 96 97 Oximetry 08/12/20 17:11 Temperature Pulse Rate 88 Respiratory 16 Rate Blood Pressure Blood Pressure 156/89 [Right] O2 Sat by Pulse 98 Oximetry - Reevaluation(s) Reevaluation #1: 08/12/20 14:10 Patient poorly sedated despite having been given Haldol, Benadryl, Versed, given ketamine 100 mg IV [address]1 for CT head with sufficient sedation. Patient evaluated by neurology on-call using hat ironer, recommends discontinue CTA head and neck, suspects possible seizure. Patient does have tongue laceration and apparent seizure history consistent with same. Reevaluation #2: 08/12/20 14:59 Patient reevaluated and now in no acute distress. Patient is awake, alert, oriented x3. Patient now able to provide full history including a negative review of systems. Per conversation with neurology and documentation by same service, patient should be discharged for outpatient work-up with improved mental status. As neurologic exam now nonfocal, NIHSS 0, patient without any evidence of stroke and presentation inconsistent with TIA, patient discharged to follow-up with neurology for seemingly unaddressed seizure disorder. Case discussed at length with who is comfortable with plan and will arrange follow-up. ED Medical Decision Making - Lab Data Result diagrams: 08/12/20 14:01 08/12/20 14:01 Labs 08/12/20 08/12/20 08/12/20 14:01 14:01 14:01 WBC 9.3 RBC 5.18 H Hgb 16.2 H Hct 46.9 H MCV 91 MCH 31 MCHC 35 H RDW 13.0 L Plt Count 113 L Lymph % (Auto) 9.7 L [place] % (Auto) 4.8 Eos % (Auto) 1.0 Baso % (Auto) 0.6 Lymph # (Auto) 0.9 L [place] # (Auto) 0.4 Eos # (Auto) 0.1 Baso # (Auto) 0.1 Seg Neutrophils % 83.9 H Seg Neutrophils # 7.8 H PT 12.6 INR 0.96 APTT 23.1 L Thrombin Time 16.2 Sodium 138 Potassium 3.9 Chloride 104.6 Carbon Dioxide 23 Anion Gap 14 BUN 8 L Creatinine 0.9 Estimated GFR > 60 BUN/Creatinine Ratio 9 Glucose 131 H Calcium 9.1 Total Creatine Kinase 591 H CK-MB (CK-2) 3.6 CK-MB (CK-2) Rel Index 0.6 Troponin T < 0.010 Salicylates Acetaminophen Plasma/Serum Alcohol 08/12/20 08/12/20 08/12/20 14:01 14:01 14:01 WBC RBC Hgb Hct MCV MCH MCHC RDW Plt Count Lymph % (Auto) [place] % (Auto) Eos % (Auto) Baso % (Auto) Lymph # (Auto) [place] # (Auto) Eos # (Auto) Baso # (Auto) Seg Neutrophils % Seg Neutrophils # PT INR APTT Thrombin Time Sodium Potassium Chloride Carbon Dioxide Anion Gap BUN Creatinine Estimated GFR BUN/Creatinine Ratio Glucose Calcium Total Creatine Kinase CK-MB (CK-2) CK-MB (CK-2) Rel Index Troponin T Salicylates < 0.3 L Acetaminophen 5.0 L Plasma/Serum Alcohol < 0.01 Vital Signs 08/12/20 08/12/20 08/12/20 13:10 14:00 14:16 Temperature 98.0 F Pulse Rate 84 79 Respiratory 20 17 Rate Blood Pressure 158/98 141/84 Blood Pressure [Right] O2 Sat by Pulse 97 92 93 Oximetry 08/12/20 08/12/20 08/12/20 14:46 15:00 15:16 Temperature Pulse Rate 81 91 H 86 Respiratory 18 18 18 Rate Blood Pressure 130/92 130/92 163/102 Blood Pressure [Right] O2 Sat by Pulse 94 96 97 Oximetry 08/12/20 17:11 Temperature Pulse Rate 88 Respiratory 16 Rate Blood Pressure Blood Pressure 156/89 [Right] O2 Sat by Pulse 98 Oximetry - Radiology Data Radiology results: report reviewed Chest x-ray negative per radiology, CT head negative per radiology Critical Care Time: Yes Critical care time in (mins) excluding proc time.: 35 Critical care attestation.: If time is entered above; I have spent that time in minutes in the direct care of this critically ill patient, excluding procedure time. ED Disposition Clinical Impression: Altered mental status Disposition: DC-01 TO HOME OR SELFCARE Is pt being admited?: No Condition: Stable Instructions: Seizure, Adult Additional Instructions: Follow-up with neurology in 1 to 2 days for reevaluation without fail. Please note further testing including EEG and possibly MRI are required as is medical therapy. Return to the emergency department for worsening symptoms. Referrals: JAZMIN YUAN [Other] - 3-5 Days
--- NOTE | 2020-08-12 13:39 | Consultation ---
History of Present Illness History of present illness: [facility] Consult Note # Demographics Consult Type: Acute Stroke Level 1 (0-4.5 hrs) Patient Location: Emergency Room First Name: Bill Last Name: Jeff Date of : 1960 Age: 59 Gender: Male Time of Initial Page (): 08/12/2020, 13:13 Time of Return Call ( Time): 08/12/2020, 13:13 # HPI Chief Complaint: agitation History: 59M with prior history of stroke/ICH 2 years prior, schizophrenia, bipolar disorder, prior DVT/PE presents with agitation/confusion. LKWT 1230 while with family. Became combative, fighting with police on their arrival. BP 130/70. Atrial fibrillation on monitor. Similar presentation to ICH 2 years previously. Possible Thrombolytic candidate: history of ICH, agitation # Scores Time of exam and NIHSS (): 08/12/2020, 13:14 Level of Consciousness 1a: [0] = Alert; keenly responsive LOC Questions 1b: [2] = Answers neither correctly LOC Commands 1c: [2] = Performs neither correctly Best Gaze 2: [0] = Normal Visual 3: [0] = No visual loss Facial Palsy 4: [0] = Normal symmetrical movements Motor Arm Left 5a: [0] = No drift Motor Arm Right 5b: [0] = No drift Motor Leg Left 6a: [0] = No drift Motor Leg Right 6b: [0] = No drift Limb Ataxia 7: [0] = Absent Sensory 8: [0] = Normal Best Language 9: [1] = [id number] aphasia Dysarthria 10: [1] = Cdsk-fu-[id number] dysarthria Extinction and Inattention 11: [0] = No abnormality NIHSS Total: 6 # Data Time Head CT personally read by me (): 08/12/2020, 13:[address]: no bleed, preliminarily reviewed by me, please refer to radiology read for official reading # Assessment Impression: Acute encephalopathy, r/o seizure and stroke # Plan Thrombolytic/Intervention: NOT IV Thrombolytic or IA Intervention Thrombolytic Exclusion (< 3 hour window): history of ICH Intraarterial Exclusion: not consistent with LVO presentation Target Blood Pressure: SBP < 220, DBP < 105 Diagnostic Test: If no improvement in mental status, would get EEG and MRI brain Other: I have discussed my recommendations with the referring provider Disposition: admit # Logistics Telemedicine: Interactive 2 way audio and visual telecommunication technology was utilized during this visit Electronically signed at 08/12/2020 13:38 (Eastern Time) by Dago Voar MD Medications and Allergies Allergies Allergy/AdvReac Type Severity Reaction Status Date / Time bupropion HCl Allergy Unknown Verified 09/23/17 12:55 [From Wellbutrin] levofloxacin [From Levaquin] Allergy Rash Verified 09/23/17 12:55 warfarin sodium Allergy Rash Verified 09/23/17 12:55 [From Coumadin] onion Allergy Hives Uncoded 07/27/13 16:12 Home Medications Medication Instructions Recorded Confirmed Last Taken Type Levothyroxine [Synthroid] 150 mcg PO QAM 07/26/13 12/03/19 02/21/15 05:00 Histor y Eliquis 5 mg PO DAILY 12/03/19 12/03/19 Unknown History Lasix TAB 40 mg PO DAILY 12/03/19 12/03/19 Unknown History Lisinopril 10 mg PO DAILY 12/03/19 12/03/19 Unknown History Meclizine 12.5 mg PO DAILY 12/03/19 12/03/19 Unknown History Metoprolol 25 mg PO BID 12/03/19 12/03/19 Unknown History Omeprazole 40 mg PO DAILY 12/03/19 12/03/19 Unknown History Potassium 10 meq PO DAILY 12/03/19 12/03/19 Unknown History Rosuvastatin (Nf) 20 mg PO DAILY 12/03/19 12/03/19 Unknown History amLODIPine 5 mg PO DAILY 12/03/19 12/03/19 Unknown History lamoTRIgine 25 mg PO BID 12/03/19 12/03/19 Unknown History risperiDONE 0.25 mg PO HS 12/03/19 12/03/19 Unknown History
--- NOTE | 2020-08-12 13:57 | Cat Scan Report ---
CT head/brain wo con INDICATION / CLINICAL INFORMATION: MAIN. TECHNIQUE: All CT scans at this location are performed using CT dose reduction for ALARA by means of automated e xposure control. COMPARISON: 12/03/2019 FINDINGS: Postsurgical changes seen in the posterior fossa. Ventricle size is normal. No mass or mass effect is seen. There is no evidence of intracranial hemorrhage. No obvious area of infarction is identified. The paranasal sinuses are clear. IMPRESSION: Postsurgical changes in the posterior fossa. No acute findings or interval change from 12/03/2019 CODE STROKE: Time of Communication (ANDROID IOS DEVELOPER/CDT): 1253 hours central time Licensed Practitioner Receiving Report: Abdirashid Worthington M.D. Signer Name: Lito Barros MD FACR Signed: 08/12/2020 1:53 PM Workstation Name: [id number]
[2020-08-12 14:17] LABS: Basophils # (Auto) 0.1 K/mm3 (0.0-0.1); Basophils % (Auto) 0.6 % (0.0-1.8); Eosinophils # (Auto) 0.1 K/mm3 (0.0-0.4); Hematocrit 46.9 % (35.5-45.6); Hemoglobin 16.2 gm/dl (11.8-15.2); Lymphocytes # (Auto) 0.9 K/mm3 (1.2-5.4); Lymphocytes % (Auto) 9.7 % (13.4-35.0); Mean Corpuscular HGB Conc 35 % (32-34); Mean Corpuscular Volume 91 fl (84-94); Monocytes # (Auto) 0.4 K/mm3 (0.0-0.8); Monocytes % (Auto) 4.8 % (0.0-7.3); Platelet Count 113 K/mm3 (140-440); Red Blood Count 5.18 M/mm3 (3.65-5.03)
[2020-08-12 14:28] LABS: INR 0.96 (0.87-1.13)
[2020-08-12 14:29] LABS: Partial Thromboplastin Time 23.1 Sec. (24.2-36.6); Thrombin Time 16.2 Sec. (15.1-19.6)
[2020-08-12 14:36] LABS: Creatine Kinase MB 3.6 ng/mL (0.0-4.0)
[2020-08-12 14:37] LABS: BUN/Creatinine Ratio 9; Blood Urea Nitrogen 8 mg/dL (9-20); Calcium 9.1 mg/dL (8.4-10.2); Hemolysis Index 18
--- NOTE | 2020-08-12 15:32 | XRay Report ---
CHEST 1 VIEW INDICATION / CLINICAL INFORMATION: weakness. COMPARISON: 12/03/2019 FINDINGS: SUPPORT DEVICES: None. HEART / MEDIASTINUM: No significant abnormality. LUNGS / PLEURA: No significant pulmonary or pleural abnormality. No pneumothorax. ADDITIONAL FINDINGS: No significant additional findings. IMPRESSION: No acute disease or interval change from 12/03/2019 Signer Name: Lito Barros MD FACR Signed: 08/12/2020 3:28 PM Workstation Name: [id number]
[2020-08-12 17:11] VITALS: BP 156/89
--- NOTE | 2020-08-13 13:47 | Electrocardiograph Report ---
[facility] Test Date: 2020-08-12 Test Time: 13:55:25 Pat Name: RENÉE VARGAS Department: Room: Gender: M Staffing Program Manager: : [id number] Requested By: TYREE CORRAL Order Number: [id number] Reading MD: Debby Newton Measurements Intervals [place] Rate: 81 P: IN: QRS: -41 QRSD: 118 T: 57 QT: 384 QTc: 445 Interpretive Statements Atrial fibrillation Incomplete left bundle branch block No previous ECG available for comparison Electronically Signed On 08-13-2020 13:46:51 EDT by Debby Newton
== END 2020-08-12 17:13 | disposition home or self-care (01) ==
LOC: ED 13:09
DX: R41.82 Altered mental status, unspecified (principal); I10 Essential (primary) hypertension; K21.9 Gastro-esophageal reflux disease without esophagitis; G43.909 Migraine, unspecified, not intractable, without status migrainosus; M19.91 Primary osteoarthritis, unspecified site; F03.90 Unspecified dementia, unspecified severity, without behavioral disturbance, psychotic disturbance, mood disturbance, and anxiety; Z90.89 Acquired absence of other organs; Z98.890 Other specified postprocedural states; Z79.899 Other long term (current) drug therapy; Z88.8 Allergy status to other drugs, medicaments and biological substances
CPT/HCPCS: 36415; 70450; 71045; 80048; 80320; 82550; 82553; 84484; 85025; 85610; 85670; 85730; 93005; G0480